=== PATIENT | female | born 1970 | race Two or more races ===

== ENCOUNTER → 2022-05-20 08:00 | Outpatient (CLI) | payer OTHER | END | disposition home or self-care (01) | LOC: LAB 08:00 → ADM 14:00 → EDSTATUS 05-25 14:00 → AMB-ENDOS 05-25 14:00 | PROVIDERS: ATTEND Colon & Rectal Surgery | DX: Z03.818 Encounter for observation for suspected exposure to other biological agents ruled out (principal); K57.32 Diverticulitis of large intestine without perforation or abscess without bleeding; K92.1 Melena ==